=== PATIENT | female | born 1975 | race Caucasian/White ===

== ENCOUNTER 2019-08-01 07:37 | Day surgery (SDC) | payer OTHER ==
[~2019-08-01] VITALS: Ht 167.6 cm; Wt 70.8 kg
[~2019-08-01 07:37] MED LIST: ARMOUR THYROID30 MG PO; CYCLOBENZAPRINE5 MG PO; IBUPROFEN600 MG PO; PERCOCET 5-3251 EACH PO
--- NOTE | 2019-08-01 09:18 | NUR ---
08/01/19 0918 Gita,Tana 0915 PT ARRIVED TO PACU AND WAKES EASILY, VSS AND PT FALLS EASILY BACK TO SLEEP. O2 TURNED OFF.
--- NOTE | 2019-08-01 10:54 | OR ---
[facility] [address], [place] [address] Signed DATE OF OPERATION: 08/01/2019 SURGEON: Janett Sloan MD PREOPERATIVE DIAGNOSES: 1. Proximal esophageal dysphagia. 2. Maternal grandmother with esophageal cancer (age 95). POSTOPERATIVE DIAGNOSES: 1. Small hiatal hernia. 2. Mild diffuse gastritis. PROCEDURES: EGD with CLOtest and biopsies of the pyloric bulb, antrum, body of stomach, GE junction, mid esophagus and distal esophagus. ESTIMATED BLOOD LOSS: None. INDICATIONS: Kathy is a 44-year-old female, who was asked to see me for upper endoscopy. She had participated in gymnastics as a young child. She continues to do cycling. She has had trouble over the years with her neck. At one point, it was very swollen and she ended up on prednisone. More recently, she has had trouble with swallowing in the proximal esophagus. Mainly with Dutch fries sugar and other such things. She also told me her maternal grandmother at age 95 has esophageal cancer. Kathy obviously is quite concerned about constellation of issues. I gave her a booklet on upper endoscopy and we looked at that together. She understands the nature of the test along with the risk including, but not limited to gas bloating, crampy abdominal pain, bleeding, perforation requiring surgery, and missed diagnosis. She also understands the need for IV conscious sedation. She had expressed understanding and wished to proceed. In addition, we did send her for a barium swallow. She did fine except sequential swallows seemed to be just a little weaker than her primary swallow. I had also reviewed that with Kathy just prior to her sedation. DESCRIPTION OF PROCEDURE: Kathy was taken into our endoscopy suite and placed in the supine position under IV sedation. The posterior oropharynx was given lidocaine spray. We gave her a total of 6 mg of Versed and 100 mcg of fentanyl to cover the case. A bite block was utilized for the case. The adult gastroscope was introduced and advanced quite readily out into the Electronically Signed By: JANETT SLOAN MD 08/01/19 1054 PATIENT NAME: KATHY DANIEL OPERATIVE REPORT DATE OF : 71 REPORT #: [id number] PHYSICIAN: JANETT SLOAN MD PCP: IMANI LYNCH DO REPORT IS CONFIDENTIAL AND NOT TO BE RELEASED WITHOUT AUTHORIZATION [facility] [address], [place] [address] Signed third portion of the duodenum under direct visualization of camera without difficulty. The scope was slowly withdrawn. The duodenum and pyloric bulb appeared healthy. She had clear green bile in the duodenum. We took a biopsy out of pyloric bulb in the antrum for pathologic review. She had just very mild erythema in the stomach. She had no ulcerations. We took an additional biopsy of the antrum for CLOtest. Otherwise, incisura body and fundus of the stomach were unremarkable. Upon retroflexion of scope, it appears to have just a small hiatal hernia. There were no gastric or esophageal varices. The scope was withdrawn up to the area of the GE junction, which was compliant without stricture. She has just minimal disruption to the Z-line. There was no Chong's mucosa and no distal esophagitis. We went ahead and took a biopsy along the Z-line as well as the middle and upper esophagus because of her symptoms. Otherwise, the middle upper esophagus were unremarkable. After this, the gas was suctioned out and the gastroscope removed. Kathy tolerated the procedure quite well. RECOMMENDATIONS: I will see Kathy back in my office in 7 to 14 days to review her results. Janett Sloan MD ALB/MODL /[id number] cc: DO Janett Hill MD Patricia J Winn, MD Copies: IMANI LYNCH ANDREW L MD WINN, PATRICIA J MD ~ Electronically Signed By: JANETT SLOAN MD 08/01/19 1054 PATIENT NAME: KATHY DANIEL OPERATIVE REPORT DATE OF : 71 REPORT #: [id number] PHYSICIAN: JAENTT SLOAN MD PCP: IMANI LYNCH DO REPORT IS CONFIDENTIAL AND NOT TO BE RELEASED WITHOUT AUTHORIZATION
--- NOTE | 2019-08-03 13:34 | PATH ---
[facility] [address] [facility] [place], [place] [address] Signed SPECIMEN(S): A ANTRUM/PYLORUS, BULB SPECIMEN(S): B ANTRUM SPECIMEN(S): C BODY SPECIMEN(S): D GE JUNCTION SPECIMEN(S): E MIDDLE ESOPHAGUS SPECIMEN(S): F UPPER ESOPHAGUS SPECIMEN SOURCE: A. ANTRUM/PYLORUS, BULB B. ANTRUM C. BODY D. GE JUNCTION E. MIDDLE ESOPHAGUS F. UPPER ESOPHAGUS CLINICAL HISTORY: Dysphagia. Hiatal hernia, mild gastritis. MICROSCOPIC DESCRIPTION: Histologic sections of all submitted blocks are examined by light microscopy. These findings, together with the gross examination, support the pathologic diagnosis. FINAL PATHOLOGIC DIAGNOSIS: A. Antrum/pylorus, bulb: - Duodenal-type mucosa with slight reactive epithelial features, negative for significant diagnostic abnormality. B. Antrum, biopsy: - Antral-type mucosa with focal slight chronic inflammation. - Negative for evidence of Helicobacter organisms on routine HE stained sections. C. Body, biopsy: - Benign fundic-type mucosa, negative for evidence of Helicobacter organisms on routine HE stained sections. D. Gastroesophageal junction: - Benign esophageal mucosa, negative for increased epithelial eosinophils. - Negative for glandular mucosa. E. Middle esophagus, biopsy: - Benign esophageal mucosa, negative for increased epithelial eosinophils. - Negative for glandular mucosa. F. Upper esophagus, biopsy: - Benign esophageal mucosa, negative for increased epithelial eosinophils. PATIENT NAME: LEISA DANIELCHON YEE PATHOLOGY DATE OF : 71 REPORT #: [id number] PHYSICIAN: DAYANA PATHOLOGY PCP: IMANI LYNCH DO REPORT IS CONFIDENTIAL AND NOT TO BE RELEASED WITHOUT AUTHORIZATION [facility] [address], [place] [address] Signed - Negative for glandular mucosa. JVR:emb:C2NR GROSS DESCRIPTION: Six specimens are received in six containers, labeled "KL." A. The specimen, labeled "KL, 1," and designated on the requisition "antrum/pylorus bulb," is received in formalin and consists of one gregorio soft tissue fragment(s) that measure 0.3 cm in greatest dimension. The specimen is entirely submitted in cassette (A1). B. The specimen, labeled "KL, 2," and designated on the requisition "antrum," is received in formalin and consists of one gregorio soft tissue fragment(s) that measure 0.3 cm in greatest dimension. The specimen is entirely submitted in cassette (B1). C. The specimen, labeled "KL, 3," and designated on the requisition "stomach body," is received in formalin and consists of one gregorio soft tissue fragment(s) that measure 0.4 cm in greatest dimension. The specimen is entirely submitted in cassette (C1). D. The specimen, labeled "KL, 4," and designated on the requisition "GE junction," is received in formalin and consists of one gregorio soft tissue fragment(s) that measure 0.3 cm in greatest dimension. The specimen is entirely submitted in cassette (D1). E. The specimen, labeled "KL, 5," and designated on the requisition "mid esophagus," is received in formalin and consists of one gregorio soft tissue fragment(s) that measure 0.4 cm in greatest dimension. The specimen is entirely submitted in cassette (E1). F. The specimen, labeled "KL, 6," and designated on the requisition "upper esophagus," is received in formalin and consists of one gregorio soft tissue fragment(s) that measure 0.3 cm in greatest dimension. The specimen is entirely submitted in cassette (F1). AT (under the direct supervision of a pathologist) The Gross Description was prepared using a voice recognition system. The report was reviewed for accuracy; however, sound-alike word errors, addition and/or deletions may occur. If there is any question about this report, please contact Client Services. PERFORMING LABORATORY: The technical component was performed by [employer] [address] [place] [id number] (Signals Collection Technician: Niya Grove MD; CLIA# [id number]). Professional interpretation was performed by [place] [address] PATIENT NAME: AARON DANIEL PATHOLOGY DATE OF : 71 REPORT #: [id number] PHYSICIAN: [facility] PATH[facility] PCP: IMANI LYNCH DO REPORT IS CONFIDENTIAL AND NOT TO BE RELEASED WITHOUT AUTHORIZATION [address] [address] Signed (Signals Collection Technician: Delta Castaneda M.D.). Diagnostician: Delta Castaneda MD Pathologist Electronically Signed 08/03/2019 Copies: ~ PATIENT NAME: AARON DANIEL PATHOLOGY DATE OF : 71 REPORT #: [id number] PHYSICIAN: DAYANA LAWSON PCP: IMANI LYNCH DO REPORT IS CONFIDENTIAL AND NOT TO BE RELEASED WITHOUT AUTHORIZATION
== END 2019-08-01 09:58 | disposition home or self-care (01) ==
LOC: OPS 07:37 → DS 07:37 → OPS 09:00 → DS 09:00 → OPS 09:58
PROVIDERS: Colon & Rectal Surgery
PROC: 0DB78ZX Excision of Stomach, Pylorus, Via Natural or Artificial Opening Endoscopic, Diagnostic (ICD-10-PCS; 2019-08-01)
PROC: 0DB18ZX Excision of Upper Esophagus, Via Natural or Artificial Opening Endoscopic, Diagnostic (ICD-10-PCS; 2019-08-01)
PROC: 0DB28ZX Excision of Middle Esophagus, Via Natural or Artificial Opening Endoscopic, Diagnostic (ICD-10-PCS; 2019-08-01)
PROC: 0DB48ZX Excision of Esophagogastric Junction, Via Natural or Artificial Opening Endoscopic, Diagnostic (ICD-10-PCS; principal; 2019-08-01 09:00)
DX: K29.50 Unspecified chronic gastritis without bleeding (principal); K44.9 Diaphragmatic hernia without obstruction or gangrene; E03.9 Hypothyroidism, unspecified; Z79.899 Other long term (current) drug therapy
CPT/HCPCS: 84703; 86677; 99153; G0500; J2250; J3010; J7121